=== PATIENT | male | born 1950 | race Caucasian/White ===

== ENCOUNTER → 2020-02-16 10:13 | Outpatient (BNVA) | payer MEDICAID, SELFPAY | PROVIDERS: Visit Provider Physician Assistant | DX: Z13.89 Encounter for screening for other disorder (principal) ==

== ENCOUNTER → 2020-10-21 10:41 | Outpatient (BNVA) | payer MEDICAID, SELFPAY | PROVIDERS: PCP Emergency Medicine; Visit Provider Internal Medicine Pulmonary Disease | DX: J44.9 Chronic obstructive pulmonary disease, unspecified (principal); R91.8 Other nonspecific abnormal finding of lung field | CPT/HCPCS: 99202 ==

== ENCOUNTER 2020-11-07 09:41 | Outpatient (REF) | payer MEDICAID, SELFPAY ==
--- NOTE | ~2020-11-07 | CT_ITS ---
EXAMINATION: CT CHEST WITHOUT CONTRAST CLINICAL INFORMATION: Sequela of other specified infections and parasite. COMPARISON: Chest radiograph dated 08/01/2017. TECHNIQUE: Multidetector volumetric CT imaging of the chest was done. Axial MIP volume rendering provided. Sagittal and coronal reformatted images were obtained. This CT examination was performed using dose optimization techniques as appropriate, variously including the following: *Automated exposure control *Adjustment of mA and/or kV according to patient size (this includes techniques or standardized protocols for targeted exams where dose is matched to indication/reason for exam; i.e. extremities or head) *Use of iterative reconstruction technique DLP: 83 mGy-cm. FINDINGS: TECHNICAL ASST: Hyperexpansion of the lungs, consistent with COPD. LUNGS: Severe emphysematous changes. Minimal somewhat linear scarring versus atelectasis along the right minor fissure. There are multiple tiny scattered calcified granulomas. No noncalcified pulmonary nodule or mass. No confluent airspace consolidation. The central airways are patent. MEDIASTINUM: No cardiomegaly. No pericardial effusion. No thoracic aortic dilatation. Atherosclerotic calcifications. Probable pericardial recess measuring 0.9 x 1.9 cm. No mediastinal or hilar lymphadenopathy. Unremarkable thyroid. PLEURA: There is no pleural effusion. No pleural mass or thickening. AXILLA: No lymphadenopathy. UPPER ABDOMEN: Atrophic right renal atrophy. OSSEOUS STRUCTURES: Chronic anterior wedge compression deformity at T9. Findings are similar when compared to the radiograph from 2018. CT/CT chest wo con IMPRESSION: 1. Severe emphysematous changes. 2. No noncalcified pulmonary nodule, mass, or airspace consolidation. 3. No significant lymphadenopathy.
== END 2020-11-07 09:42 | disposition home or self-care (01) ==
LOC: HO.CT 09:41
PROVIDERS: Visit Provider Internal Medicine Pulmonary Disease
DX: B94.8 Sequelae of other specified infectious and parasitic diseases (principal)
CPT/HCPCS: 71250

== ENCOUNTER 2020-11-24 12:57 | Outpatient (REF) | payer MEDICAID, SELFPAY ==
--- NOTE | 2020-11-24 17:14 | PFT_ITS ---
Forced vital capacity, FEV1, XGB60-77, and MVV are all markedly decreased. Post bronchodilator therapy, there is a slight improvement in FVC, FEV1, and RTX30-81. Total lung capacity normal. Residual volume is markedly increased. Diffusion capacity markedly decreased. CONCLUSION: These findings are consistent with very severe obstructive airway disorder. There is a minimal response to bronchodilator therapy. Clinical correlation recommended. MD SOURAV Jones/JANET / [id number]
== END 2020-11-24 12:58 | disposition home or self-care (01) ==
LOC: HO.RESP 12:57
PROVIDERS: Visit Provider Internal Medicine Pulmonary Disease
DX: J44.9 Chronic obstructive pulmonary disease, unspecified (principal)
CPT/HCPCS: 94060; 94727; 94729; 99212